=== PATIENT | male | born 1975 | race Caucasian/White ===

== ENCOUNTER 2017-03-02 20:35 | Emergency (ER) | payer BC, OTHER ==
[2017-03-02 20:57] VITALS: TEMP 97.7; O2SAT 99
[2017-03-02] MEDS ORDERED: Sodium Chloride 0.9% 1,000 ML IV ONE (21:13)
[2017-03-02 21:40] LABS: BASO # 0.1 K/uL (0.0-0.2); BASO % 0.8 % (0.0-2.0); EOS # 0.4 K/uL (0.0-0.7); HEMOGLOBIN 14.6 g/dL (12.0-18.0); LYMPH # 1.6 K/uL (1.0-4.3); LYMPH % 11.3 % (20.0-40.0); MEAN CELL VOLUME 96.9 fL (80.0-94.0); MEAN PLATELET VOLUME 7.2 fL (7.2-11.7); MONO # 0.5 K/uL (0.0-0.8); MONO % 3.7 % (0.0-10.0); NEUT # 11.7 K/uL (1.8-7.0); NEUT % 81.2 % (50.0-75.0); RBC 4.43 Mil/uL (4.40-5.90); RED CELL DISTRIBUTION WIDTH 13.4 % (11.5-14.5); WHITE BLOOD COUNT 14.4 K/uL (4.8-10.8)
[2017-03-02 21:45] LABS: ALBUMIN 4.5 g/dL (3.5-5.0)
[2017-03-02 21:47] LABS: ALB/GLOB RATIO 1.4 (1.0-2.1); AST/SGOT 39 U/L (17-59); BLOOD UREA NITROGEN 17 mg/dL (9-20); GFR AFRICAN-AMERICAN > 60; GFR NON-AFRICAN AMERICAN > 60
[2017-03-02 21:48] LABS: ALT/SGPT 36 U/L (21-72); CALCIUM 8.7 mg/dl (8.6-10.4); MAGNESIUM 1.9 mg/dL (1.6-2.3)
[2017-03-02] MEDS ORDERED: Sodium Chloride 0.9% 1,000 ML ONE (21:48)
[2017-03-02 21:57] LABS: CK-MB 0.98 ng/mL (0.0-3.38)
[2017-03-02] MEDS ORDERED: Bacitracin 500 Units/gm Oint Foilpak UD TOP ONE (23:13)
[2017-03-02] MEDS ORDERED: Bacitracin 500 Units/gm Oint Foilpak UD ONE (23:18)
--- NOTE | 2017-03-02 23:18 | C.PDOC ---
Time Seen by Provider: 03/02/17 20:59 Chief Complaint (Nursing): Syncope History Per: Patient Onset/Duration Of Symptoms: Other (Just [employer]) Current Symptoms Are (Timing): Better Number Of Syncopal Episodes: 1 Activity At Onset Of Symptoms: Standing Associated Symptoms Preceding Syncopal Episode: Lightheadedness Seizure Or Post-ictal Symptoms: None Possible Causative Factor(s): Recent Alcohol, Decreased PO Intake, Other (Hot weather) Fall Associated With With Symptoms: Yes, Positive Injury (Abrasion to nose) Severity: Moderate Additional History Per: Prior Records - Symptoms Of CVA Associated Symptoms: denies: Impaired Speech, Seizure Activity, New Vision Deficit(Left), New Vision Deficit(Right), Decreased Ability To Walk, New Confusion Recent Aspirin Use: No Current Coumadin Use?: No Past Medical History Reviewed: Historical Data, Nursing Documentation, Vital Signs Vital Signs: Last Vital Signs Temp 97.7 F 03/02/17 20:48 Pulse 68 03/02/17 20:48 Resp 18 03/02/17 20:48 BP 107/70 03/02/17 20:48 Pulse Ox 99 03/02/17 20:48 - Medical History PMH: No Chronic Diseases - [employer] Procedures INJECT/INFUSE NEC (10/27/13) Family History: States: Unknown Family Hx - Social History Hx Alcohol Use: Yes Hx Substance Use: Yes (Marijuana) - Immunization History Hx Tetanus Toxoid Vaccination: No Hx Influenza Vaccination: No Hx Pneumococcal Vaccination: No Review Of Systems Except As Marked, All Systems Reviewed And Found Negative. Constitutional: Negative for: Fever ENT: Negative for: Nose Discharge Cardiovascular: Negative for: Chest Pain, Palpitations Respiratory: Negative for: Shortness of Breath Gastrointestinal: Negative for: Vomiting, Abdominal Pain Musculoskeletal: Negative for: Neck Pain Neurological: Negative for: Weakness, Numbness, Incoordination, Change in Speech , Confusion, Seizures, Altered Mental Status, Headache Physical Exam - Physical Exam Appears: Non-toxic, No Acute Distress Skin: Normal Color, Warm, Dry, No Rash Head: Abrasion (to bridge of nose) Eye(s): bilateral: Normal Inspection, PERRL, EOMI Neck: Normal ROM, No Midline Cervical Tenderness, No Step Off Deformity, Supple Cardiovascular: Rhythm Regular Respiratory: Normal Breath Sounds, No Accessory Muscle Use Gastrointestinal/Abdominal: Soft, No Tenderness Back: No CVA Tenderness, No Vertebral Tenderness Extremity: Normal ROM, No Deformity Neurological/Psych: Oriented x3, Normal Speech, Normal Cognition, Normal Cranial Nerves, No Cerebellar Signs, Normal Motor, Normal Sensation ED Course And Treatment - Laboratory Results Result Diagrams: 03/02/17 21:33 03/02/17 21:33 ECG: Interpreted By Me, Viewed By Me ECG Rhythm: Sinus Rhythm ECG Interpretation: No Acute Changes Rate From EC O2 Sat by Pulse Oximetry: 99 Pulse Ox Interpretation: Normal - CT Scan/US CT head Other Rad Studies (CT/US): Read By Radiologist, Radiology Report Reviewed CT/US Interpretation: No acute findings. Progress - Interventions Interventions:: Observation, Intravenous fluid - Data Reviewed Data Reviewed: Lab, Diagnostic imaging, EKG, Old records - Patient Status Patient status: Completely improved - Continuity of Care Discussed patient case with:: Patient, ED Nurse - Patient Plan Patient Plan: Discharge, F/U with PCP Disposition Counseled Patient/Family Regarding: Studies Performed, Diagnosis, Need For Followup - Disposition Disposition: HOME/ ROUTINE Disposition Time: 23:20 Condition: IMPROVED Additional Instructions: Avoid alcohol. Drink plenty of fluids. Follow up with a primary doctor. Return to the ER if you pass out again, develop worsening of symptoms or if you have any other concerns. Instructions: Syncope (ED) Print Language: [place] - Clinical Impression Clinical Impression: Syncope
[2017-03-02 23:25] VITALS: BP 120/80; PULSE 70; RESP 14
--- NOTE | 2017-03-03 08:37 | CT ---
PROCEDURE: CT HEAD WITHOUT CONTRAST. HISTORY: Syncope, hit head COMPARISON: None available. TECHNIQUE: Axial computed tomography images were obtained through the head/brain without intravenous contrast. Radiation dose: Total exam DLP = 699.07 mGy-cm. This CT exam was performed using one or more of the following dose reduction techniques: Automated exposure control, adjustment of the mA and/or kV according to patient size, and/or use of iterative reconstruction technique. FINDINGS: HEMORRHAGE: There small rounded focus of seen within the region of the junction of the foramina Monro/3rd ventricle measures approximate 4.8 mm and may represent a colloid cyst. Possibility of small amount of intraventricular hemorrhage cannot be completely excluded though is less likely in the absence of additional intraventricular hemorrhage shaft. No evidence of subarachnoid or extra-axial hemorrhage. BRAIN: No mass effect or edema. No atrophy or chronic microvascular ischemic changes. VENTRICLES: Unremarkable. No hydrocephalus. CALVARIUM: Unremarkable. PARANASAL SINUSES: Mild to moderate mucosal thickening seen within the ethmoid air complex extending superiorly into the left aspect of the frontal sinus. MASTOID AIR CELLS: Unremarkable as visualized. No inflammatory changes. OTHER FINDINGS: None. IMPRESSION: There is a small approximately 4.8 mm rounded hyperdense focus at the junction of the foramina Monro soft/ 3rd ventricle which could represent colloid cyst. Possibility of small amount of intraventricular hemorrhage cannot be completely excluded. Recommend follow-up CT scan 24 hours to assess stability. Followup non emergent MRI is also recommended. . Note this report was placed in PA review folder followup. Preliminary report provided by overnight radiology service
--- NOTE | 2017-03-05 16:49 | CARD ---
APPROVED REPORT EKG Measurement Heart [id number] <Conclusion> Normal sinus rhythm Normal ECG
== END 2017-03-02 23:25 | disposition home or self-care (01) ==
LOC: C.ER 20:35
DX: R55 Syncope and collapse (principal); S00.31XA Abrasion of nose, initial encounter; W18.30XA Fall on same level, unspecified, initial encounter
CPT/HCPCS: 70450; 80053; 80320; 83735; 84484; 85025; 90471; 90715; 99285; J7040